=== PATIENT | male | born 1955 | race Caucasian/White ===

== ENCOUNTER 2025-02-21 17:38 | Inpatient (IN) | payer MEDICARE ==
[~2025-02-21] VITALS: Ht 160 cm; Wt 68.7 kg
[2025-02-21] VITALS: BP 147/81; PULSE 82; RESP 14; TEMP 36.974
[2025-02-21] MEDS: NITROGLYCERIN 0.4MG TABLET SL SL ONE (18:03)
[2025-02-21] MEDS: ASPIRIN 325MG EC TABLET PO ONE (18:03)
[2025-02-21 18:14] LABS: BASOPHILS % 0.9 % (0.0-2.0); EOSINOPHILS % 1.5 % (0.0-5.0); HEMATOCRIT. 46.2 % (42.0-52.0); HEMOGLOBIN. 15.6 g/dL (14.0-18.0); LYMPHOCYTES % 33.3 % (20.0-50.0); MEAN PLATELET VOLUME 8.4 fl (7.4-10.4); MONOCYTES % 11.7 % (2.0-8.0); NEUTROPHILS % 52.6 % (40.0-76.0); PLATELET 222 x1000/uL (130-400); RED BLOOD CELL COUNT 4.93 mill/uL (4.7-6.1); RED CELL DISTRIBUTION WIDTH 14.6 % (11.6-14.6)
[2025-02-21] MEDS: MORPHINE SULFATE 4 MG/ML INJ (FOR IV/IM USE) IV ONE ×2 (18:22→19:16)
[2025-02-21] MEDS: ONDANSETRON HCL 4MG/2ML INJ IV ONE (18:22)
[2025-02-21] MEDS: PANTOPRAZOLE SODIUM 40 MG/VIAL IV ONE (18:22)
[2025-02-21 18:28] LABS: CREATININE 1.2 mg/dL (0.6-1.3); INR 1.0; UREA NITROGEN BLOOD 13 mg/dL (9-23)
[2025-02-21 18:29] LABS: TROPONIN I HIGH SENSITIVITY 24 ng/L (3.0-53)
[2025-02-21 18:30] LABS: ASPARTATE AMINOTRANSFERASE 27 IU/L (<34); BILIRUBIN DIRECT 0.2 mg/dL (<=3.0); BILIRUBIN TOTAL 0.9 mg/dL (0.1-1.0); PROTEIN TOTAL 7.8 g/dL (6.0-8.3)
[2025-02-21] MEDS: MAGNESIUM/ALUMINUM HYDROXIDE/SIMETHICONE 30ML UDC PO ONE (18:42)
[2025-02-21] MEDS: POTASSIUM CHLORIDE 20MEQ TABLET SR PO ONE (19:52)
[2025-02-21 20:45] LABS: TROPONIN I HIGH SENSITIVITY 127 ng/L (3.0-53)
[2025-02-21] MEDS ORDERED: IOHEXOL-350 100 ML BOTTLE ONE (21:02)
[2025-02-21] MEDS: ENOXAPARIN 60MG/0.6ML SYR SUBCUT ONE (21:11)
[2025-02-21 22:21] LABS: TROPONIN I HIGH SENSITIVITY 1262 ng/L (3.0-53)
[2025-02-21] MEDS ORDERED: HEPARIN 25,000 UNITS PREMIX 250 ML IV PRN (22:45)
[2025-02-21] MEDS: HEPARIN 5000 UNITS/ML VIAL IV SCH (22:45)
[2025-02-21] MEDS ORDERED: EPTIFIBATIDE 2 MG/ML 10ML VIAL IV SCH ×2 (23:00→23:30)
[2025-02-21] MEDS ORDERED: EPTIFIBATIDE 100 ML IV SCH (23:30)
[2025-02-22] VITALS (37 sets, daily range): BP systolic 104–153; BP diastolic 46–114; PULSE 61–85; RESP 10–20; TEMP 36.4–36.7; O2SAT 96–100
[2025-02-22] MEDS ORDERED: CLONIDINE 0.1MG TABLET PO PRN (00:15)
[2025-02-22] MEDS ORDERED: MAGNESIUM/ALUMINUM HYDROXIDE/SIMETHICONE 30ML UDC PO PRN (00:15)
[2025-02-22] MEDS ORDERED: ZOLPIDEM TARTRATE 5MG TABLET PO PRN (00:15)
[2025-02-22] MEDS ORDERED: ACETAMINOPHEN 325MG TABLET PO PRN ×2 (00:15→20:00)
[2025-02-22] MEDS ORDERED: DIPHENHYDRAMINE 50MG/ML VIAL IV PRN (00:15)
[2025-02-22] MEDS ORDERED: ONDANSETRON HCL 4MG/2ML INJ IV PRN (00:15)
[2025-02-22] MEDS ORDERED: EPTIFIBATIDE 2 MG/ML 10ML VIAL IV NR (00:45)
[2025-02-22] MEDS ORDERED: EPTIFIBATIDE 2 MG/ML 10ML VIAL IV SCH (00:45)
[2025-02-22] MEDS ORDERED: NITROGLYCERIN 0.4MG TABLET SL SL PRN (01:00)
[2025-02-22] MEDS: EPTIFIBATIDE 2 MG/ML 10ML VIAL IV NR (01:09)
[2025-02-22] MEDS: EPTIFIBATIDE 100 ML IV SCH (01:10)
[2025-02-22] MEDS ORDERED: EPINEPHRINE 0.1MG/ML (1:10,000) 10ML SYR ONE (04:01)
[2025-02-22] MEDS ORDERED: ATROPINE SULFATE 1MG/10ML SYR ONE (04:02)
[2025-02-22] MEDS ORDERED: IODIXANOL 320 MG/ML 150ML BOTTLE IV ONE (04:02)
[2025-02-22] MEDS ORDERED: MIDAZOLAM HCL 2 MG/2 ML VIAL ONE ×2 (04:02→05:24)
[2025-02-22] MEDS ORDERED: FENTANYL CITRATE/PF 50MCG/ML 2ML VIAL ONE ×2 (04:02→14:36)
[2025-02-22] MEDS ORDERED: LIDOCAINE HCL 1% 20ML VIAL ONE ×2 (04:02→05:20)
[2025-02-22] MEDS ORDERED: HEPARIN 1000 UNITS/ML 10ML ONE ×4 (04:02→14:18)
[2025-02-22] MEDS ORDERED: IODIXANOL 320MG/ML 100 ML BOTTLE IV ONE ×2 (05:01→05:20)
[2025-02-22] MEDS: SODIUM CHLORIDE 0.9% 3ML FLUSH IVF SCH (06:00)
[2025-02-22] MEDS ORDERED: HEPARIN 25,000 UNITS in DEXT 5% WATER 245 ML IV SCH (06:15)
[2025-02-22] MEDS: CHLORHEXIDINE GLUCONATE 4% EXTERNAL USE TOP SCH (07:00)
[2025-02-22] MEDS: HEPARIN 25,000 UNITS PREMIX 250 ML IV SCH (07:06)
[2025-02-22 07:14] LABS: CREATININE 1.0 mg/dL (0.6-1.3); TRIGLYCERIDE 41 mg/dL (0-150); UREA NITROGEN BLOOD 11 mg/dL (9-23)
[2025-02-22 07:15] LABS: LDL CHOLESTEROL 77 mg/dL (5-100)
[2025-02-22] MEDS ORDERED: DOBUTAMINE 250 MG/250 ML PREMIX IV SCH (07:15)
[2025-02-22 07:16] LABS: ASPARTATE AMINOTRANSFERASE 128 IU/L (<34); PHOSPHORUS 3.1 mg/dL (2.5-4.9)
[2025-02-22 07:17] LABS: BILIRUBIN TOTAL 1.0 mg/dL (0.1-1.0); PROTEIN TOTAL 6.8 g/dL (6.0-8.3)
[2025-02-22 07:19] LABS: BASOPHILS % 0.7 % (0.0-2.0); EOSINOPHILS % 0.3 % (0.0-5.0); HEMATOCRIT. 41.8 % (42.0-52.0); HEMOGLOBIN. 14.1 g/dL (14.0-18.0); LYMPHOCYTES % 14.4 % (20.0-50.0); MEAN PLATELET VOLUME 8.6 fl (7.4-10.4); MONOCYTES % 9.9 % (2.0-8.0); NEUTROPHILS % 74.7 % (40.0-76.0); PLATELET 188 x1000/uL (130-400); RED BLOOD CELL COUNT 4.47 mill/uL (4.7-6.1); RED CELL DISTRIBUTION WIDTH 14.3 % (11.6-14.6); TROPONIN I HIGH SENSITIVITY 23333 ng/L (3.0-53)
[2025-02-22 07:23] LABS: INR 1.0
[2025-02-22] MEDS ORDERED: DEL NIDO CARDIOPLEGIA 1,000 ML (PREMIX) IV PRN (07:30)
[2025-02-22] MEDS ORDERED: NICARDIPINE 50 MG in NS 250 ML IV PRN (07:30)
[2025-02-22] MEDS ORDERED: DOPAMINE 400MG/250ML PREMIX 250 ML IV PRN (07:30)
[2025-02-22] MEDS ORDERED: CEFAZOLIN 2,000 MG in DEXT 5% WATER 100 ML IV SCH (07:30)
[2025-02-22] MEDS ORDERED: PAPAVERINE HCL 180MG in SODIUM CHLORIDE 0.9% 24ML IV SCH (07:30)
[2025-02-22] MEDS ORDERED: NOREPINEPHRINE 8MG/250ML PMX 250 ML IV PRN (07:30)
[2025-02-22] MEDS ORDERED: NICARDIPINE 40MG/200ML PREMIX 200 ML IV PRN (07:45)
[2025-02-22] MEDS: NITROGLYCERIN 50MG PREMIX 250 ML IV PRN (08:42)
[2025-02-22] MEDS ORDERED: LOSARTAN 25 MG TABLET PO SCH (09:00)
[2025-02-22] MEDS: ASPIRIN 81MG TABLET PO SCH (09:00)
[2025-02-22] MEDS: FAMOTIDINE 20MG/2ML VIAL IV SCH (09:00)
[2025-02-22] MEDS ORDERED: HEPARIN 60 UNITS/KG BOLUS IV NR (09:00)
[2025-02-22] MEDS: PANTOPRAZOLE SODIUM 40 MG/VIAL IV SCH (09:00)
[2025-02-22] MEDS ORDERED: HEPARIN BOLUS PRN aPTT 30-44 IV (09:00)
[2025-02-22] MEDS ORDERED: HEPARIN BOLUS PRN aPTT <30 IV (09:00)
[2025-02-22] MEDS ORDERED: PROPOFOL 10MG/ML 100ML 100 ML IV ONE ×2 (09:16→18:54)
[2025-02-22] MEDS ORDERED: DEXMEDETOMIDINE 250 ML IV PRN (09:30)
[2025-02-22] MEDS ORDERED: DEXMEDETOMIDINE 250 ML IV SCH (09:30)
[2025-02-22] MEDS: CARVEDILOL 3.125 MG TABLET PO SCH (11:31)
[2025-02-22] MEDS: VANCOMYCIN 1GM/200ML PMX (BAXTER) IV SCH (11:45)
[2025-02-22] MEDS ORDERED: NITROGLYCERIN 50MG PREMIX 250 ML IV ONE (12:25)
[2025-02-22] MEDS ORDERED: SEVOFLURANE 250 ML LIQUID INH ONE (12:25)
[2025-02-22] MEDS ORDERED: THROMBIN (BOVINE) 5000 UNITS/VIAL TOP ONE (12:26)
[2025-02-22] MEDS ORDERED: POLYMYXIN B SULFATE 500000 UNITS/VIAL ONE (12:27)
[2025-02-22] MEDS ORDERED: SKIN ADHESIVE 0.7 GM EA TOP ONE (12:27)
[2025-02-22] MEDS ORDERED: ACETAMINOPHEN 1000MG/100ML 100 ML IV ONE (12:27)
[2025-02-22] MEDS ORDERED: MAGN400C MT (12:29)
[2025-02-22] MEDS ORDERED: TOLN133P TP (12:29)
[2025-02-22] MEDS ORDERED: CHOL400D7 PO (12:29)
[2025-02-22] MEDS ORDERED: ASCO500T19 (12:29)
[2025-02-22] MEDS ORDERED: ROCURONIUM BROMIDE 10MG/ML VIAL 5ML IV ONE ×3 (12:53→19:26)
[2025-02-22] MEDS ORDERED: CEFAZOLIN SODIUM 1000MG/VIAL ONE (12:58)
[2025-02-22] MEDS ORDERED: METOCLOPRAMIDE HCL 10MG/2ML VIAL ONE (12:58)
[2025-02-22] MEDS ORDERED: ONDANSETRON HCL 4MG/2ML INJ ONE ×2 (12:58→19:23)
[2025-02-22] MEDS ORDERED: AMINOCAPROIC ACID 250 MG/ML 20ML VIAL ONE ×2 (12:59→14:18)
[2025-02-22] MEDS ORDERED: LIDOCAINE HCL 2% 5ML SYRINGE IV ONE ×2 (13:16→14:18)
[2025-02-22 13:21] LABS: TROPONIN I HIGH SENSITIVITY 20800 ng/L (3.0-53)
[2025-02-22] MEDS ORDERED: FENTANYL CITRATE/PF 50MCG/ML 5ML VIAL ONE (13:25)
[2025-02-22 14:11] LABS: HEPATITIS C AB NON REACTIVE (Neg) (Negative)
[2025-02-22] MEDS ORDERED: ALBUMIN HUMAN 25GM/100ML (25%) IV ONE ×2 (14:18→20:45)
[2025-02-22] MEDS ORDERED: MANNITOL 20% (20GM/100ML) BAG 500ML PREMIX IV ONE (14:18)
[2025-02-22] MEDS ORDERED: CALCIUM CHLORIDE 1GM/10ML SYR IV ONE ×2 (14:18→16:08)
[2025-02-22] MEDS ORDERED: POTASSIUM CHLORIDE 40MEQ/20ML INJ IV ONE (14:18)
[2025-02-22] MEDS ORDERED: SODIUM BICARBONATE 8.4% 50MEQ/50ML SYR IV ONE ×2 (14:18→16:08)
[2025-02-22] MEDS ORDERED: PHENYLEPHRINE HCL 10MG/ML 1ML IV ONE (14:18)
[2025-02-22] MEDS ORDERED: MAGNESIUM SULFATE 5GM/10ML VIAL IV ONE (14:18)
[2025-02-22] MEDS ORDERED: PROTAMINE SULFATE 10MG/ML VIAL 25ML IV ONE (17:50)
[2025-02-22 19:14] LABS: BASOPHILS % 0.3 % (0.0-2.0); EOSINOPHILS % 0.4 % (0.0-5.0); HEMATOCRIT. 31.3 % (42.0-52.0); HEMOGLOBIN. 10.8 g/dL (14.0-18.0); LYMPHOCYTES % 10.1 % (20.0-50.0); MEAN PLATELET VOLUME 8.4 fl (7.4-10.4); MONOCYTES % 2.8 % (2.0-8.0); NEUTROPHILS % 86.4 % (40.0-76.0); PLATELET 95 x1000/uL (130-400); RED BLOOD CELL COUNT 3.42 mill/uL (4.7-6.1); RED CELL DISTRIBUTION WIDTH 14.6 % (11.6-14.6)
[2025-02-22 19:24] LABS: INR 1.1
[2025-02-22 19:38] LABS: CREATININE 1.1 mg/dL (0.6-1.3); UREA NITROGEN BLOOD 12 mg/dL (9-23)
[2025-02-22 19:40] LABS: ASPARTATE AMINOTRANSFERASE 108 IU/L (<34); BILIRUBIN TOTAL 1.0 mg/dL (0.1-1.0); PHOSPHORUS 1.8 mg/dL (2.5-4.9); PROTEIN TOTAL 5.0 g/dL (6.0-8.3)
[2025-02-22] MEDS: EPINEPHRINE 5 MG in DEXT 5% WATER 250 ML IV PRN (19:45)
[2025-02-22] MEDS: MILRINONE 20MG-DEXT 5% PREMIX 100 ML IV PRN (19:45)
[2025-02-22] MEDS: PROPOFOL 10MG/ML 100ML 100 ML IV PRN (19:45)
[2025-02-22] MEDS: AMINOCAPROIC ACID 5,000 MG in SODIUM CHLORIDE 0.9% 250 ML IV PRN (19:45)
[2025-02-22] MEDS ORDERED: KCL 10MEQ/50ML PREMIX 200 ML IV PRN (19:45)
[2025-02-22] MEDS ORDERED: KCL 10MEQ/50ML PREMIX 150 ML IV PRN (19:45)
[2025-02-22] MEDS: INSULIN REGULAR 100 U/100 ML PREMIX IV PRN (20:00)
[2025-02-22] MEDS ORDERED: ALBUMIN HUMAN 25GM/100ML (25%) IV PRN (20:00)
[2025-02-22] MEDS ORDERED: SODIUM CHLORIDE 0.9% 500 ML IV PRN (20:00)
[2025-02-22] MEDS: AMIODARONE 360MG/200ML D5W PREMIX IV SCH (20:08)
[2025-02-22] MEDS: AMINOCAPROIC ACID 5,000 MG in SODIUM CHLORIDE 0.9% 250 ML IV ONE (20:09)
[2025-02-22 20:23] LABS: BASOPHILS % 0.3 % (0.0-2.0); EOSINOPHILS % 0.3 % (0.0-5.0); HEMATOCRIT. 34.3 % (42.0-52.0); HEMOGLOBIN. 11.6 g/dL (14.0-18.0); LYMPHOCYTES % 9.8 % (20.0-50.0); MEAN PLATELET VOLUME 8.5 fl (7.4-10.4); MONOCYTES % 2.9 % (2.0-8.0); NEUTROPHILS % 86.7 % (40.0-76.0); PLATELET 109 x1000/uL (130-400); RED BLOOD CELL COUNT 3.72 mill/uL (4.7-6.1); RED CELL DISTRIBUTION WIDTH 14.5 % (11.6-14.6)
[2025-02-22 20:27] LABS: BG BASE EXCESS 3.4 mmol/L (-2.0-3.0); BG CARBOXYHEMOGLOBIN 0.3 % (0.5-1.5); BG DEOXYHEMOGLOBIN 0.4 % (0.0-5.0); BG FRACTION INSPIRED OXYGEN 100; BG HCO3 ACT 25.0 mmol/L (21.0-28.0); BG METHEMOGLOBIN 0.0 % (0.5-1.5); BG OXYGEN SATURATION 99.6 % (94.0-98.0); BG OXYHEMOGLOBIN 99.3 % (94.0-98.0); BG PCO2 29.0 mmHg (35.0-48.0); BG PEEP (cmH2O) 5.0 cmH2O; BG PH 7.554 (7.350-7.450); BG PO2 431.3 mmHg (83.0-108.0); BG SAMPLE SITE ALINE; BG TIDAL VOLUME(mL) 500.0 mL; BG TOTAL HEMOGLOBIN 12.2 g/dL (13.5-17.5); BG VENT MODE VENT - AC; BG VENT RATE 16.0 set
[2025-02-22 20:30] LABS: BG DEOXYHEMOGLOBIN 22.7 % (0.0-5.0)
[2025-02-22] MEDS: MORPHINE SULFATE 4 MG/ML INJ (FOR IV/IM USE) IV PRN (20:33)
[2025-02-22 20:35] LABS: INR 1.1
[2025-02-22 20:37] LABS: CREATININE 1.3 mg/dL (0.6-1.3)
[2025-02-22 20:38] LABS: UREA NITROGEN BLOOD 13 mg/dL (9-23)
[2025-02-22 20:40] LABS: PHOSPHORUS 1.1 mg/dL (2.5-4.9)
[2025-02-22] MEDS: KCL 10MEQ/50ML PREMIX 100 ML IV PRN (20:48)
[2025-02-22] MEDS: ATORVASTATIN CALCIUM 40MG TABLET PO SCH (21:00)
[2025-02-22 21:05] LABS: TROPONIN I HIGH SENSITIVITY 24541 ng/L (3.0-53)
[2025-02-22] MEDS ORDERED: SODIUM CHLORIDE 0.9% 500 ML IV NR ×2 (21:10→21:15)
[2025-02-22] MEDS: ALBUMIN HUMAN 25GM/100ML (25%) IV SCH (21:20)
[2025-02-22] MEDS: DEXT 5%/0.45% NACL 1000ML 1,000 ML IV SCH (21:40)
[2025-02-22 21:42] LABS: BG BASE EXCESS 0.1 mmol/L (-2.0-3.0); BG CARBOXYHEMOGLOBIN 0.3 % (0.5-1.5); BG DEOXYHEMOGLOBIN 1.1 % (0.0-5.0); BG FRACTION INSPIRED OXYGEN 40; BG HCO3 ACT 24.2 mmol/L (21.0-28.0); BG METHEMOGLOBIN 0.3 % (0.5-1.5); BG OXYGEN SATURATION 98.9 % (94.0-98.0); BG OXYHEMOGLOBIN 98.3 % (94.0-98.0); BG PCO2 36.8 mmHg (35.0-48.0); BG PEEP (cmH2O) 5.0 cmH2O; BG PH 7.435 (7.350-7.450); BG PO2 167.4 mmHg (83.0-108.0); BG SAMPLE SITE ALINE; BG TIDAL VOLUME(mL) 500.0 mL; BG TOTAL HEMOGLOBIN 10.7 g/dL (13.5-17.5); BG VENT MODE VENT - AC; BG VENT RATE 14.0 set
[2025-02-22] MEDS ORDERED: DEXT 5%/0.45% NACL KCL 20MEQ/L 1,000 ML IV SCH (22:00)
[2025-02-22] MEDS: CEFAZOLIN 1000MG PREMIX 50 ML IV SCH (22:00)
[2025-02-22] MEDS: VANCOMYCIN 750MG PREMIX 150 ML IV SCH (23:00)
[2025-02-23] VITALS (96 sets, daily range): BP systolic 90–128; BP diastolic 48–73; PULSE 65–97; RESP 0–28; TEMP 36.9–37.2; O2SAT 90–100
[2025-02-23] MEDS: ACETAMINOPHEN 1000MG/100ML 100 ML IV NR (00:03)
[2025-02-23] MEDS: IPRATROPIUM/ALBUTEROL 0.5-3(2.5)MG/3ML NEB HHN SCH (00:14)
[2025-02-23 00:24] LABS: BASOPHILS % 0.2 % (0.0-2.0); EOSINOPHILS % 0.2 % (0.0-5.0); HEMATOCRIT. 28.3 % (42.0-52.0); HEMOGLOBIN. 9.5 g/dL (14.0-18.0); LYMPHOCYTES % 9.3 % (20.0-50.0); MEAN PLATELET VOLUME 8.9 fl (7.4-10.4); MONOCYTES % 6.7 % (2.0-8.0); NEUTROPHILS % 83.6 % (40.0-76.0); PLATELET 107 x1000/uL (130-400); RED BLOOD CELL COUNT 3.03 mill/uL (4.7-6.1); RED CELL DISTRIBUTION WIDTH 14.2 % (11.6-14.6)
[2025-02-23] MEDS ORDERED: ACETAMINOPHEN 1000MG/100ML 100 ML IV PRN (00:30)
[2025-02-23 00:32] LABS: CREATININE 1.5 mg/dL (0.6-1.3); UREA NITROGEN BLOOD 14 mg/dL (9-23)
[2025-02-23 00:44] LABS: PHOSPHORUS < 0.3 mg/dL (2.5-4.9)
[2025-02-23 00:45] LABS: BG BASE EXCESS -2.4 mmol/L (-2.0-3.0); BG CARBOXYHEMOGLOBIN 0.3 % (0.5-1.5); BG DEOXYHEMOGLOBIN 2.3 % (0.0-5.0); BG FRACTION INSPIRED OXYGEN 30; BG HCO3 ACT 22.8 mmol/L (21.0-28.0); BG METHEMOGLOBIN 0.0 % (0.5-1.5); BG OXYGEN SATURATION 97.7 % (94.0-98.0); BG OXYHEMOGLOBIN 97.4 % (94.0-98.0); BG PCO2 40.9 mmHg (35.0-48.0); BG PEEP (cmH2O) 5.0 cmH2O; BG PH 7.364 (7.350-7.450); BG PO2 110.6 mmHg (83.0-108.0); BG TOTAL HEMOGLOBIN 10.2 g/dL (13.5-17.5); BG VENT MODE VENT - CPAP
[2025-02-23 02:06] LABS: BG BASE EXCESS -0.4 mmol/L (-2.0-3.0); BG CARBOXYHEMOGLOBIN 0.3 % (0.5-1.5); BG DEOXYHEMOGLOBIN 2.2 % (0.0-5.0); BG FLOW(L/min) 3.00 L/min; BG FRACTION INSPIRED OXYGEN 32; BG HCO3 ACT 24.9 mmol/L (21.0-28.0); BG METHEMOGLOBIN 0.3 % (0.5-1.5); BG OXYGEN SATURATION 97.8 % (94.0-98.0); BG OXYHEMOGLOBIN 97.2 % (94.0-98.0); BG PCO2 43.5 mmHg (35.0-48.0); BG PH 7.376 (7.350-7.450); BG PO2 114.4 mmHg (83.0-108.0); BG SAMPLE SITE ALINE; BG TOTAL HEMOGLOBIN 10.2 g/dL (13.5-17.5); BG VENT MODE NASAL CANNULA
[2025-02-23] MEDS: POTASSIUM PHOSPHATE 15 MMOL in DEXT 5% WATER 245 ML IV NR (02:49)
[2025-02-23] MEDS ORDERED: DEXTROSE 50% WATER 50ML SYRINGE IV PRN ×2 (03:00)
[2025-02-23] MEDS: OXYCODONE HCL/ACETAMINOPHEN 5/325MG TABLET PO PRN ×2 (03:11→21:23)
[2025-02-23] MEDS: ONDANSETRON HCL 4MG/2ML INJ IV PRN (04:58)
[2025-02-23 05:46] LABS: HEMATOCRIT. 28.8 % (42.0-52.0); HEMOGLOBIN. 9.7 g/dL (14.0-18.0); MEAN PLATELET VOLUME 8.7 fl (7.4-10.4); PLATELET 97 x1000/uL (130-400); RED BLOOD CELL COUNT 3.09 mill/uL (4.7-6.1); RED CELL DISTRIBUTION WIDTH 15.0 % (11.6-14.6)
[2025-02-23 05:59] LABS: CREATININE 1.5 mg/dL (0.6-1.3)
[2025-02-23 06:00] LABS: TRIGLYCERIDE 29 mg/dL (0-150); UREA NITROGEN BLOOD 11 mg/dL (9-23)
[2025-02-23 06:02] LABS: PHOSPHORUS 2.6 mg/dL (2.5-4.9)
[2025-02-23] MEDS: DOCUSATE SODIUM 100MG CAPSULE PO SCH (08:28)
[2025-02-23] MEDS: BACITRACIN 14GM TUBE TOP SCH (08:29)
[2025-02-23] MEDS ORDERED: CHLORHEXIDINE GLUCONATE 4% EXTERNAL USE TOP SCH (09:00)
[2025-02-23] MEDS: CALCIUM GLUCONATE 1GM PREMIX 50 ML IV NR ×2 (09:32→20:42)
[2025-02-23] MEDS: EPINEPHRINE 5 MG in SODIUM CHLORIDE 0.9% 245 ML IV PRN (10:25)
[2025-02-23] MEDS ORDERED: POTASSIUM CHLORIDE 10MEQ IN WATER 50ML PREMIX IV ONE (12:36)
[2025-02-23] MEDS: POTASSIUM CHLORIDE 20MEQ TABLET SR PO SCH (12:48)
[2025-02-23] MEDS: AMIODARONE 200MG TABLET PO SCH (12:48)
[2025-02-23] MEDS: SODIUM CHLORIDE 0.9% 250 ML IV ONE (14:28)
[2025-02-23 18:46] LABS: PLATELET 93 x1000/uL (130-400); RED BLOOD CELL COUNT 3.09 mill/uL (4.7-6.1); RED CELL DISTRIBUTION WIDTH 15.1 % (11.6-14.6)
[2025-02-23 19:00] LABS: CREATININE 1.0 mg/dL (0.6-1.3); UREA NITROGEN BLOOD 9 mg/dL (9-23)
[2025-02-23 19:43] LABS: LYMPHOCYTES % MANUAL 11.0 % (20.0-50.0); MONOCYTES % MANUAL 7.0 % (2.0-8.0); NEUTROPHILS % MANUAL 82.0 % (45.0-75.0); PLATELET ESTIMATE DECREASED
[2025-02-23] MEDS: VANCOMYCIN 1GM PMX (XELLIA) 200 ML IV SCH (20:41)
[2025-02-23] MEDS: INSULIN REGULAR 100U/100ML PMX 100 ML IV SCH (20:57)
[2025-02-23] MEDS: POTASSIUM CHLORIDE 20MEQ TABLET SR PO NR (20:58)
[2025-02-23] MEDS ORDERED: NALOXONE HCL 0.4MG/ML VIAL IV PRN (21:45)
[2025-02-23] MEDS: MORPHINE SULFATE 4 MG/ML INJ (FOR IV/IM USE) IV PRN (21:52)
[2025-02-24] VITALS (102 sets, daily range): BP systolic 105–144; BP diastolic 55–84; PULSE 74–98; RESP 0–27; TEMP 36.4–37.1; O2SAT 86–100
[2025-02-24] MEDS: LORAZEPAM 0.5MG TABLET PO PRN (01:14)
[2025-02-24] MEDS: CALCIUM GLUCONATE 1GM PREMIX 50 ML IV NR (02:27)
[2025-02-24] MEDS: ACETAMINOPHEN 325MG TABLET PO PRN (02:33)
[2025-02-24 04:33] LABS: BASOPHILS % 0.2 % (0.0-2.0); EOSINOPHILS % 0.1 % (0.0-5.0); HEMATOCRIT. 27.1 % (42.0-52.0); HEMOGLOBIN. 9.1 g/dL (14.0-18.0); LYMPHOCYTES % 7.6 % (20.0-50.0); MEAN PLATELET VOLUME 8.9 fl (7.4-10.4); MONOCYTES % 7.2 % (2.0-8.0); NEUTROPHILS % 84.9 % (40.0-76.0); PLATELET 74 x1000/uL (130-400); RED BLOOD CELL COUNT 2.87 mill/uL (4.7-6.1); RED CELL DISTRIBUTION WIDTH 15.2 % (11.6-14.6)
[2025-02-24 04:46] LABS: CREATININE 0.8 mg/dL (0.6-1.3); UREA NITROGEN BLOOD 9 mg/dL (9-23)
[2025-02-24 04:48] LABS: PHOSPHORUS 2.7 mg/dL (2.5-4.9)
[2025-02-24] MEDS: AMIODARONE HCL 900 MG in DEXT 5% WATER 500 ML IV SCH (05:00)
[2025-02-24] MEDS: CEFAZOLIN 1000MG PREMIX 50 ML IV SCH (05:40)
[2025-02-24] MEDS ORDERED: DEXTROSE 50% WATER 50ML SYRINGE IV PRN (07:45)
[2025-02-24] MEDS: BLOOD SUGAR DIAGNOSTIC STRIP TEST SCH (08:05)
[2025-02-24] MEDS: INSULIN LISPRO 100 UNITS/ML SUBCUT SCH (08:05)
[2025-02-24] MEDS: ALBUMIN HUMAN 25GM/100ML (25%) IV SCH (08:12)
[2025-02-24 08:31] LABS: CLARITY URINE CLEAR (CLEAR); COLOR URINE YELLOW (YELLOW); GLUCOSE URINE NEGATIVE (NEGATIVE); KETONES URINE NEGATIVE (NEGATIVE); LEUKOCYTE ESTERASE URINE NEGATIVE (NEGATIVE); NITRITE URINE NEGATIVE (NEGATIVE); OCCULT BLOOD URINE 1+ (NEGATIVE); PH URINE 5.5 (4.5-8.0); PROTEIN URINE 1+ (NEGATIVE); SPECIFIC GRAVITY URINE 1.036 (1.005-1.030); UROBILINOGEN URINE 0.2 E.U./dL (0.2-1.0)
[2025-02-24 08:41] LABS: COARSE GRANULAR CASTS URINE 0-5 /lpf; FINE GRANULAR CASTS URINE 0-5 /lpf
[2025-02-24 08:43] LABS: BACTERIA URINE 3+; SQUAMOUS EPITHELIAL CELL URINE FEW /lpf (RARE/1+)
[2025-02-24] MEDS: CALCIUM GLUCONATE 1GM PREMIX 50 ML IV SCH ×2 (08:56→10:01)
[2025-02-24 09:01] LABS: BG BASE EXCESS -2.7 mmol/L (-2.0-3.0); BG CARBOXYHEMOGLOBIN 1.0 % (0.5-1.5); BG DEOXYHEMOGLOBIN 8.6 % (0.0-5.0); BG FRACTION INSPIRED OXYGEN 21; BG HCO3 ACT 21.5 mmol/L (21.0-28.0); BG METHEMOGLOBIN 0.3 % (0.5-1.5); BG OXYGEN SATURATION 91.3 % (94.0-98.0); BG OXYHEMOGLOBIN 90.1 % (94.0-98.0); BG PCO2 35.2 mmHg (35.0-48.0); BG PH 7.404 (7.350-7.450); BG PO2 57.9 mmHg (83.0-108.0); BG SAMPLE SITE RIGHT RADIAL; BG TOTAL HEMOGLOBIN 10.3 g/dL (13.5-17.5); BG VENT MODE ROOM AIR
[2025-02-24] MEDS: CALCIUM CARBONATE 500MG TABLET CHEW PO PRN (10:59)
[2025-02-24] MEDS: BISACODYL 5MG TABLET PO PRN (10:59)
[2025-02-24 12:24] LABS: HEMATOCRIT. 26.6 % (42.0-52.0); HEMOGLOBIN. 8.8 g/dL (14.0-18.0); MEAN PLATELET VOLUME 10.2 fl (7.4-10.4); PLATELET 68 x1000/uL (130-400); RED BLOOD CELL COUNT 2.83 mill/uL (4.7-6.1); RED CELL DISTRIBUTION WIDTH 14.9 % (11.6-14.6)
[2025-02-24 12:30] LABS: CREATININE 0.8 mg/dL (0.6-1.3)
[2025-02-24 12:33] LABS: UREA NITROGEN BLOOD 10 mg/dL (9-23)
[2025-02-24 12:35] LABS: PHOSPHORUS 2.2 mg/dL (2.5-4.9)
[2025-02-24 12:52] LABS: LYMPHOCYTES % MANUAL 5.0 % (20.0-50.0); MONOCYTES % MANUAL 4.0 % (2.0-8.0); NEUTROPHILS % MANUAL 91.0 % (45.0-75.0); PLATELET ESTIMATE DECREASED
[2025-02-24] MEDS: DEXT 5% IV NR (17:53)
[2025-02-24] MEDS: WATER IV NR (17:53)
[2025-02-24] MEDS: SODIUM PHOSPHATE IV NR (17:53)
[2025-02-24] MEDS ORDERED: ATOR10TA69 PO (21:05)
[2025-02-24] MEDS ORDERED: TERB250T88 PO (21:05)
[2025-02-24] MEDS ORDERED: ERGO1250 PO (21:05)
[2025-02-24] MEDS ORDERED: LORA-249 PO (21:05)
[2025-02-24] MEDS ORDERED: OMEP40CA20 PO (21:05)
[2025-02-25] VITALS (89 sets, daily range): BP systolic 86–134; BP diastolic 50–93; PULSE 75–96; RESP 8–26; TEMP 36.7–36.9; O2SAT 89–100
[2025-02-25] MEDS: LACTULOSE 20G/30ML UDC PO PRN (03:01)
[2025-02-25 06:04] LABS: HEMATOCRIT. 26.6 % (42.0-52.0); HEMOGLOBIN. 9.0 g/dL (14.0-18.0); MEAN PLATELET VOLUME 9.3 fl (7.4-10.4); PLATELET 88 x1000/uL (130-400); RED BLOOD CELL COUNT 2.85 mill/uL (4.7-6.1); RED CELL DISTRIBUTION WIDTH 14.7 % (11.6-14.6)
[2025-02-25 06:41] LABS: CREATININE 0.8 mg/dL (0.6-1.3); UREA NITROGEN BLOOD 11 mg/dL (9-23)
[2025-02-25 06:43] LABS: PHOSPHORUS 2.1 mg/dL (2.5-4.9)
[2025-02-25] MEDS: MAGNESIUM 2 G PREMIX 50 ML IV SCH (07:34)
[2025-02-25] MEDS: FUROSEMIDE 20MG TABLET PO SCH (08:32)
[2025-02-25] MEDS: POTASSIUM CHLORIDE 10MEQ TABLET SR PO SCH ×2 (08:32→20:49)
[2025-02-25] MEDS ORDERED: METOPROLOL TARTRATE 25MG TABLET PO SCH (09:00)
[2025-02-25] MEDS: SODIUM PHOSPHATE 10 MMOL in DEXT 5% WATER 246.6667 ML IV SCH (09:26)
[2025-02-25 10:05] LABS: BAND% 9.0 % (1.0-6.0); EOSINOPHILS % MANUAL 1.0 % (0.0-5.0); LYMPHOCYTES % MANUAL 6.0 % (20.0-50.0); MONOCYTES % MANUAL 6.0 % (2.0-8.0); NEUTROPHILS % MANUAL 78.0 % (45.0-75.0); NUCLEATED RED BLOOD CELLS 1 /100 WBC
[2025-02-25 10:06] LABS: PLATELET ESTIMATE DECREASED
[2025-02-25] MEDS: FUROSEMIDE 20MG/2ML VIAL IVP SCH (20:49)
[2025-02-26] VITALS (96 sets, daily range): BP systolic 95–151; BP diastolic 40–88; PULSE 77–95; RESP 8–31; TEMP 36.6–37.1; O2SAT 92–100
[2025-02-26 05:24] LABS: CREATININE 0.8 mg/dL (0.6-1.3); UREA NITROGEN BLOOD 13 mg/dL (9-23)
[2025-02-26 05:26] LABS: ASPARTATE AMINOTRANSFERASE 28 IU/L (<34); BILIRUBIN TOTAL 1.1 mg/dL (0.1-1.0); PHOSPHORUS 2.1 mg/dL (2.5-4.9); PROTEIN TOTAL 5.5 g/dL (6.0-8.3)
[2025-02-26 06:35] LABS: BASOPHILS % 0.4 % (0.0-2.0); EOSINOPHILS % 1.2 % (0.0-5.0); HEMATOCRIT. 27.4 % (42.0-52.0); HEMOGLOBIN. 9.3 g/dL (14.0-18.0); LYMPHOCYTES % 11.9 % (20.0-50.0); MONOCYTES % 9.0 % (2.0-8.0); NEUTROPHILS % 77.5 % (40.0-76.0); RED BLOOD CELL COUNT 2.95 mill/uL (4.7-6.1); RED CELL DISTRIBUTION WIDTH 14.1 % (11.6-14.6)
[2025-02-26 07:41] LABS: PLATELET 134 x1000/uL (130-400)
[2025-02-26] MEDS: POTASSIUM PHOSPHATE 10 MMOL in DEXT 5% WATER 246.6667 ML IV NR (09:22)
[2025-02-26] MEDS: CALCIUM GLUCONATE 1GM PREMIX 50 ML IV NR (15:51)
[2025-02-27] VITALS (48 sets, daily range): BP systolic 103–139; BP diastolic 61–78; PULSE 78–100; RESP 11–26; TEMP 36.9; O2SAT 95–99
[2025-02-27 05:30] LABS: CREATININE 0.9 mg/dL (0.6-1.3); UREA NITROGEN BLOOD 11 mg/dL (9-23)
[2025-02-27 05:31] LABS: ASPARTATE AMINOTRANSFERASE 25 IU/L (<34)
[2025-02-27 05:33] LABS: BILIRUBIN TOTAL 0.9 mg/dL (0.1-1.0); PHOSPHORUS 2.3 mg/dL (2.5-4.9); PROTEIN TOTAL 5.3 g/dL (6.0-8.3)
[2025-02-27 05:41] LABS: BASOPHILS % 0.3 % (0.0-2.0); EOSINOPHILS % 2.2 % (0.0-5.0); HEMATOCRIT. 27.1 % (42.0-52.0); HEMOGLOBIN. 9.1 g/dL (14.0-18.0); LYMPHOCYTES % 13.3 % (20.0-50.0); MEAN PLATELET VOLUME 7.9 fl (7.4-10.4); MONOCYTES % 12.7 % (2.0-8.0); NEUTROPHILS % 71.5 % (40.0-76.0); PLATELET 174 x1000/uL (130-400); RED BLOOD CELL COUNT 2.92 mill/uL (4.7-6.1); RED CELL DISTRIBUTION WIDTH 14.0 % (11.6-14.6)
[2025-02-27] MEDS: MAGNESIUM 2 G PREMIX 50 ML IV ONE (08:45)
[2025-02-27] MEDS: POTASSIUM PHOSPHATE 10 MMOL in DEXT 5% WATER 246.6667 ML IV ONE (10:06)
[2025-02-27] MEDS: CALCIUM GLUCONATE 1GM PREMIX 50 ML IV NR ×2 (10:07)
[2025-02-27] MEDS ORDERED: LIP40 PO (13:18)
[2025-02-27] MEDS ORDERED: AMI2 PO (13:18)
[2025-02-27] MEDS ORDERED: HYDR-4009 PO (13:18)
[2025-02-27] MEDS ORDERED: ASPI-1160 PO (13:18)
[2025-02-27] MEDS ORDERED: COR3 PO (13:18)
== END 2025-02-27 18:00 | disposition home health service (06) | DRG 233 ==
LOC: ER 17:38 → EDBEDREQ 20:36 → ENRESERV 22:17 → 6WST 22:28 → CVICU 23:59
PROVIDERS: ADMIT Internal Medicine; ATTEND Internal Medicine
PROC: 4A023N7 Measurement of Cardiac Sampling and Pressure, Left Heart, Percutaneous Approach (ICD-10-PCS; principal; 2025-02-22)
PROC: 021009W Bypass Coronary Artery, One Artery from Aorta with Autologous Venous Tissue, Open Approach (ICD-10-PCS; 2025-02-22)
PROC: B211YZZ Fluoroscopy of Multiple Coronary Arteries using Other Contrast (ICD-10-PCS; 2025-02-22)
PROC: 5A02210 Assistance with Cardiac Output using Balloon Pump, Continuous (ICD-10-PCS; 2025-02-22)
PROC: 02100Z9 Bypass Coronary Artery, One Artery from Left Internal Mammary, Open Approach (ICD-10-PCS; 2025-02-22)
PROC: 06BP4ZZ Excision of Right Saphenous Vein, Percutaneous Endoscopic Approach (ICD-10-PCS; 2025-02-22)
PROC: B215YZZ Fluoroscopy of Left Heart using Other Contrast (ICD-10-PCS; 2025-02-22)
PROC: 5A1221Z Performance of Cardiac Output, Continuous (ICD-10-PCS; 2025-02-22)
PROC: B24BZZ4 Ultrasonography of Heart with Aorta, Transesophageal (ICD-10-PCS; 2025-02-22)
DX: I21.4 Non-ST elevation (NSTEMI) myocardial infarction (principal); I50.43 Acute on chronic combined systolic (congestive) and diastolic (congestive) heart failure; J96.01 Acute respiratory failure with hypoxia; I47.20 Ventricular tachycardia, unspecified; Z20.822 Contact with and (suspected) exposure to COVID-19; D64.9 Anemia, unspecified; I25.10 Atherosclerotic heart disease of native coronary artery without angina pectoris; D69.6 Thrombocytopenia, unspecified; E78.00 Pure hypercholesterolemia, unspecified; K21.9 Gastro-esophageal reflux disease without esophagitis; Z79.899 Other long term (current) drug therapy
CPT/HCPCS: 33967; 36415; 36600; 71045; 71275; 74174; 80048; 80053; 80061; 80076; 81003; 82375; 82803; 82805; 82962; 83036; 83605; 83735; 83880; 84100; 84478; 84484; 85025; 85027; 85347; 85384; 86705; 86850; 86900; 86920; 87070; 87077; 87186; 87340; 87426; 93005; 93306; 93458; 93880; 93970; 94003; 94070; 94640; 94664; 96374; 96375; 97110; 97116; 97162; 97165; 97530; 97535; 98960; 99291; A4606; A6449; C1725; C1729; C1751; C1758; C1887; J0282; J0461; J0612; J0690; J1250; J1308; J1327; J1644; J1650; J1815; J1938; J2003; J2250; J2260; J2270; J2371; J2405; J2440; J2470; J2704; J2720; J2765; J3010; J3373; J3475; J3480; J3490; J7050; J7060; L3908; P9047; Q9967; A4217; J0131